=== PATIENT | male | born 1975 | race Caucasian/White ===

== ENCOUNTER 2018-12-08 19:29 | Emergency (ER) | payer OTHER ==
[~2018-12-08] VITALS: Ht 182.9 cm; Wt 99.3 kg
[~2018-12-08 19:29] MED LIST: MUPIROCIN22 GM TOP
== END 2018-12-08 20:48 | disposition home or self-care (01) ==
LOC: ER 19:29
DX: S61.421A Laceration with foreign body of right hand, initial encounter (principal); W26.0XXA Contact with knife, initial encounter; Y93.89 Activity, other specified; Y92.090 Kitchen in other non-institutional residence as the place of occurrence of the external cause; Y99.8 Other external cause status

== ENCOUNTER 2020-12-20 08:00 | Outpatient (CLI) | payer OTHER | END 2020-12-20 08:30 | disposition home or self-care (01) | LOC: PPH VACUNA 08:00 | DX: Z23 Encounter for immunization (principal) ==

== ENCOUNTER 2021-01-10 07:45 | Outpatient (CLI) | payer OTHER | END 2021-01-10 08:00 | disposition home or self-care (01) | LOC: PPH VACUNA 07:45 | PROVIDERS: ATTEND Emergency Medicine Pediatric Emergency Medicine | DX: Z23 Encounter for immunization (principal) ==